=== PATIENT | female | born 1955 | race Caucasian/White ===

== ENCOUNTER 2018-06-07 09:59 | Day surgery (SDC) | payer OTHER ==
[2018-05-26 16:11] VITALS: BMI 30.9
[2018-06-07] MEDS ORDERED: OFLOXACIN 0.3% OPHTHALMIC SOLUTION 5 ML BOTTLE ONE (10:23)
[2018-06-07] MEDS ORDERED: KETOROLAC TROMETHAMINE 0.5% EYE DROP 1 DROP DROPS OD ONE ×2 (11:10→11:30)
[2018-06-07] MEDS: PHENYLEPHRINE 2.5% OPHTH SOLN 15 ML BOTTLE ONE ×5 (11:10→11:30)
[2018-06-07] MEDS: KETOROLAC TROMETHAMINE 0.5% EYE DROP 1 DROP DROPS ONE ×5 (11:10→11:30)
[2018-06-07] MEDS: TROPICAMIDE 1% OPHTH SOLN 15 ML BOTTLE ONE ×5 (11:10→11:30)
[2018-06-07] MEDS: CYCLOPENTOLATE HCL 1% OPHTH SOLN 2 ML BOTTLE ONE ×5 (11:10→11:30)
[2018-06-07] MEDS ORDERED: ACETAMINOPHEN 325 MG TABLET (FP) PO PRN ×2 (12:59→13:16)
[2018-06-07] MEDS ORDERED: ONDANSETRON 4 MG/2 ML VIAL IVPUSH PRN (12:59)
[2018-06-07] MEDS ORDERED: LACTATED RINGERS SOLUTION 1,000 ML IV SCH (13:00)
[2018-06-07] MEDS ORDERED: LIDOCAINE HCL/PF 2% SDV 5ML VIAL ONE (13:18)
[2018-06-07] MEDS ORDERED: BUPIVACAINE HCL/PF 0.5% (5MG/ML) 10 ML VIAL ONE (13:18)
[2018-06-07] MEDS ORDERED: LIDOCAINE HCL 2% JELLY 10 ML CARTRIDGE ONE (13:18)
[2018-06-07] MEDS ORDERED: EPI-SHUGARCAINE (EPINEPHRINE 0.025% & LIDOCAINE-PF 0.75%) 4ML ONE (13:18)
[2018-06-07] MEDS ORDERED: ACETYLCHOLINE 1:100 INTRA-OCUL 20 MG/2 ML KIT ONE (13:18)
[2018-06-07] MEDS ORDERED: PROPOFOL 20 ML ONE (14:11)
[2018-06-07] MEDS ORDERED: ACETAMINOPHEN 325 MG TABLET (FP) ONE (15:27)
[2018-06-07 16:24] VITALS: BP 124/73; PULSE 70; TEMP 97.8
--- NOTE | 2018-06-07 20:07 | OP ---
DATE OF OPERATION: 06/07/2018 TITLE OF PROCEDURE: Planned extracapsular cataract extraction, phacoemulsification, insertion of posterior chamber lens implant of the right eye. SURGEON: Dajuan Muñoz M.D. SPINNER CONTINUOUS: Dajuan Muñoz M.D. ANESTHESIA: Local standby NURSE PHOTO MASK INSPECTOR: Naa Snowden ANESTHESIOLOGIST: Ed Frost M.D. COMPLICATIONS: None PREOPERATIVE DIAGNOSIS: Cataract right eye; pupillary miosis, right eye. POSTOPERATIVE DIAGNOSIS: Cataract right eye; pupillary miosis, right eye. FINDINGS AND PROCEDURE: After successful peribulbar anesthesia was given to the right eye, the patient was prepped and draped in the usual manner to expose the right eye. Tegaderm strips were applied, and a lid speculum was applied, and then the microscope brought into position over to the right eye. Superior fornix-based flap was then fashioned for 10 mm and Kalpana scissors 0.12 forceps and hemostasis with electrocautery. A limbal groove was fashioned for 3 mm and dissected anteriorly until clear cornea, and a 3-mm blade was used to enter the anterior chamber, and then under Viscoat 360 degree anterior capsulotomy was formed and the lens removed from the eye. Phacoemulsification of the entire nucleus was done in approximately 2-1/2 minutes' time through a miotic pupil with the use of sugarcane and Viscoat. Cortical material was removed in its entirety without complication, leaving entire posterior capsule and a red reflex present. Provisc was injected in the posterior chamber to deepen the posterior capsule, and the implant was inspected carefully and found to be free of defects or flaws. It was then placed in the Provisc-filled cartridge, and the cartridge was placed in the injector, and the implant injected into the eye such that the inferior haptic was in the inferior capsular bag and superior haptic in superior capsular bag and rotated in a horizontal position with a Sinskey hook. Provisc was aspirated out, replaced with Miochol, Miostat, and BSS, and the wounds were closed with single interrupted 10-0 nylon suture and tested for leakage and none was found. Conjunctiva flap was approximated. At this point the implant was fixated in the capsular bag, centrally located with a round pupil intact posterior capsule and a red reflex present. Topical Betoptic S and Maxitrol ophthalmic suspensions were placed as was bacitracin, polymyxin B, ophthalmic ointment. The Tegaderm strips and the lid speculum were removed from the lids, the lids were closed, and a patch and shield placed on the eye. The patient wa s then discharged from the operating room into the recovery area in good condition, having tolerated the procedure well. Baylee LANGSTON/[id number]
== END 2018-06-07 16:24 | disposition home or self-care (01) ==
LOC: FASU 09:59
PROVIDERS: ATTEND Ophthalmology
PROC: 08RJ3JZ Replacement of Right Lens with Synthetic Substitute, Percutaneous Approach (ICD-10-PCS; principal; 2018-06-07 14:27)
DX: H26.9 Unspecified cataract (principal); H57.03 Miosis
CPT/HCPCS: 82962